=== PATIENT | male | born 1990 ===

== ENCOUNTER → 2019-12-28 | Outpatient (CLI) | payer SELFPAY | LOC: ZCOL.LAB 02:06 | DX: Z20.828 Contact with and (suspected) exposure to other viral communicable diseases (principal) ==

== ENCOUNTER → 2020-01-21 | Outpatient (CLI) | payer SELFPAY | LOC: ZCOL.LAB 15:45 | DX: Z20.828 Contact with and (suspected) exposure to other viral communicable diseases (principal) ==